=== PATIENT | male | born 1990 | race Caucasian/White ===

== ENCOUNTER 2021-07-10 17:14 | Emergency (ER) | payer BC ==
[2021-07-10 17:47] LABS: Absolute Neutrophil Ct (ANC) 5.13 (1.4-6.9); BASOPHIL % 0.5 % (0.0-0.4); Basophil (Absolute #) 0.04 (0-0.4); Eosinophil % 0.5 % (0.00-5.0); Eosinophil (Absolute #) 0.04 (0-0.5); Hemoglobin 15.7 gm/dl (12.5-18.0); Lymphocyte (Absolute #) 2.38 (1.0-4.6); Lymphocytes % 28.1 % (24.0-44.0); Mean Cell Volume 93.4 fl (78-100); Mean Corpuscular Hemoglobin 31.2 pg (26-32); Mean Corpuscular Hgb Concent. 33.4 g/dl (32-36); Monocyte (Absolute #) 0.89 (0.0-1.3); Monocytes % 10.5 % (0.0-12.0); Neutrophil % 60.4 % (36.0-66.0); Platelet Count 194 K/mm3 (150-450); Red Blood Count 5.03 M/mm3 (4.1-5.6); Red Cell Distribution Width 13.1 % (11.5-14.0); White Blood Count 8.5 K/mm3 (4.0-10.5)
[2021-07-10 18:24] LABS: ALBUMIN 4.3 g/dL (3.5-5.0); ALKALINE PHOSPHATASE 40 U/L (38-126); ANION GAP 16.1 MEQ/L (5-15); BLOOD UREA NITROGEN 23 mg/dL (9-20); CHLORIDE 104 mmol/L (98-107); Calcium 9.6 mg/dL (8.4-10.2); Carbon Dioxide 26 mmol/L (22-30); Creatinine 1 1.02 mg/dL (0.66-1.25); EST GLOMERULAR FILTRATION RATE > 60.0 ML/MIN; Glucose 102 mg/dL (74-106); NT PRO BNP 58.5 pg/mL (0-450); Potassium 4.2 mmol/L (3.5-5.1); SGOT/AST 25 U/L (17-59); SGPT/ALT 22 U/L (0-50); SODIUM 142 mmol/L (137-145); Total Protein 6.7 g/dL (6.3-8.2)
--- NOTE | 2021-07-10 19:12 | ERPHSYRPT ---
- History of Present Illness Time Seen by Provider: 07/10/21 17:18 Patient Subjective Stated Complaint: Chest pain Triage Nursing Assessment: Patient ambulated back to ED and transferred self to bed. Patient A+O X3. Patient's skin pink, warm and dry. Patient complains of chest pain a few days ago that felt like burst of bubbles on right side of chest. Patient also states he woke up and felt "Foggy" this am. Patient currently denies pain. Patient denies N/V or diarhea. Physician History: 31 years old fairly healthy male presented in the ER with symptoms of right-si ded chest pain few days ago with feeling of some bubble popping up without any difficulty breathing. Does not have any chest pain now. Patient reports he was not feeling well overall today. He feels a little slow, malaise without any fever or chills. Denies any sick contact. Did receive Covid vaccine. Timing/Duration: day(s) (2), intermittent, sudden Activities at Onset: sleep Quality: dullness Location: other (Right side) Chest Pain Radiation: no radiation Severity of Pain-Max: mild Severity of Pain-Current: none Modifying Factors: Improves With: nothing Associated Symptoms: denies symptoms Prior Chest Pain/Cardiac Workup: no prior chest pain, no prior cardiac workup Nitro Today/Relief: no nitro taken today Aspirin Treatment Today: no aspirin today Allergies/Adverse Reactions: amoxicillin Allergy (Verified 07/10/21 17:20) Home Medications: No Reportable Medications [No Reported Medications] 07/10/21 [History] Hx Influenza Vaccination/Date Given: No Hx Pneumococcal Vaccination/Date Given: No Immunizations Up to Date: Yes Travel Risk - International Travel Have you traveled outside of the country in past 3 weeks: No - Coronavirus Screening Are you exhibiting any of the following symptoms?: No Close contact with a COVID-19 positive Pt in past 14-21 Days: No - Vaccine Status Have you recieved a Covid-19 vaccination: Yes [employer]: [place] - Review of Systems Constitutional: No Symptoms Eyes: No Symptoms Ears, Nose, & Throat: No Symptoms Respiratory: No Symptoms Cardiac: Chest Pain Abdominal/Gastrointestinal: No Symptoms Genitourinary Symptoms: No Symptoms Musculoskeletal: Myalgias Skin: No Symptoms Neurological: Other Psychological: No Symptoms Endocrine: No Symptoms Hematologic/Lymphatic: No Symptoms Immunological/Allergic: No Symptoms - Past Medical History Pertinent Past Medical History: No Neurological History: No Pertinent History ENT History: No Pertinent History Cardiac History: No Pertinent History Respiratory History: No Pertinent History Endocrine Medical History: No Pertinent History Musculoskeletal History: No Pertinent History GI Medical History: No Pertinent History History: No Pertinent History Psycho-Social History: No Pertinent History Male Reproductive Disorders: No Pertinent History - Past Surgical History Past Surgical History: No Neuro Surgical History: No Pertinent History Cardiac: No Pertinent History Respiratory: No Pertinent History Gastrointestinal: No Pertinent History Genitourinary: No Pertinent History Musculoskeletal: No Pertinent History Male Surgical History: No Pertinent History - Social History Smoking Status: Never smoker Exposure to second hand smoke: No Drug Use: none Patient Lives Alone: Yes - Nursing Vital Signs Nursing Vital Signs: Initial Vital Signs Temperature 98.6 F 07/10/21 17:22 Pulse Rate 67 07/10/21 17:22 Respiratory Rate 18 07/10/21 17:22 Blood Pressure 134/82 07/10/21 17:22 O2 Sat by Pulse Oximetry 97 07/10/21 17:22 Pain Scale Pain Intensity 0 - Physical Exam General Appearance: no apparent distress, alert, anxiety Eye Exam: PERRL/EOMI, eyes nml inspection Ears, Nose, Throat Exam: normal ENT inspection, TMs normal, pharynx normal Neck Exam: normal inspection, non-tender, supple, full range of motion Respiratory Exam: normal breath sounds, lungs clear Cardiovascular Exam: regular rate/rhythm, normal heart sounds Gastrointestinal/Abdomen Exam: soft, normal bowel sounds, No tenderness Back Exam: normal inspection, normal range of motion Extremity Exam: normal inspection, normal range of motion, pelvis stable Neurologic Exam: alert, oriented x 3, cooperative, 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 tested, nml cerebellar function, nml station & gait, sensation nml, No normal mood/affect (Anxious) Skin Exam: normal color SpO2 Interpretation: normal SpO2: 98 O2 Delivery: Room Air - Course EKG Interpreted by Me: RATE (59), Sinus Alex, NORMAL AXIS, NORMAL INTERVALS, NORMAL QRS Ordered Tests: Active Orders 24 hr Category Date Time Status CHEST 1 VIEW (PORTABLE) Stat Exams 07/10/21 17:25 Taken CBC W DIFF Stat Lab 07/10/21 17:43 Completed CMP Stat Lab 07/10/21 17:43 Completed D-DIMER QUANTITATIVE Stat Lab 07/10/21 17:43 Completed NT PRO BNP Stat Lab 07/10/21 17:43 Completed TROPONIN Q3H Lab 07/10/21 17:43 Completed TROPONIN Q3H Lab 07/10/21 20:30 Ordered TROPONIN Q3H Lab 07/10/21 23:30 Ordered TROPONIN Q3H Lab 07/11/21 02:30 Ordered TROPONIN Q3H Lab 07/11/21 05:30 Ordered Lab/Rad Data: Laboratory Result Diagrams 07/10/21 17:43 07/10/21 17:43 Laboratory Results 07/10/21 07/10/21 07/10/21 Range/Units 17:43 17:43 17:43 WBC (4.0-10.5) K/mm3 RBC (4.1-5.6) M/mm3 Hgb (12.5-18.0) gm/dl Hct (42-50) % MCV (78-100) fl MCH (26-32) pg MCHC (32-36) g/dl RDW (11.5-14.0) % Plt Count (150-450) K/mm3 MPV (7.5-11.0) fl Gran % (36.0-66.0) % Eos # (Auto) (0-0.5) Absolute Lymphs (auto) (1.0-4.6) Absolute Monos (auto) (0.0-1.3) Lymphocytes % (24.0-44.0) % Monocytes % (0.0-12.0) % Eosinophils % (0.00-5.0) % Basophils % (0.0-0.4) % Absolute Granulocytes (1.4-6.9) Basophils # (0-0.4) D-Dimer 269 (215-500) ng/mL Sodium 142 (137-145) mmol/L Potassium 4.2 (3.5-5.1) mmol/L Chloride 104 (98-107) mmol/L Carbon Dioxide 26 (22-30) mmol/L Anion Gap 16.1 H (5-15) MEQ/L BUN 23 H (9-20) mg/dL Creatinine 1.02 (0.66-1.25) mg/dL Estimated GFR > 60.0 ML/MIN Glucose 102 (74-106) mg/dL Calcium 9.6 (8.4-10.2) mg/dL Total Bilirubin 0.40 (0.2-1.3) mg/dL AST 25 (17-59) U/L ALT 22 (0-50) U/L Alkaline Phosphatase 40 (38-126) U/L Troponin I < 0.012 (0.000-0.034) ng/mL NT-Pro-B Natriuret Pep 58.5 (0-450) pg/mL Serum Total Protein 6.7 (6.3-8.2) g/dL Albumin 4.3 (3.5-5.0) g/dL 07/10/21 Range/Units 17:43 WBC 8.5 (4.0-10.5) K/mm3 RBC 5.03 (4.1-5.6) M/mm3 Hgb 15.7 (12.5-18.0) gm/dl Hct 47.0 (42-50) % MCV 93.4 (78-100) fl MCH 31.2 (26-32) pg MCHC 33.4 (32-36) g/dl RDW 13.1 (11.5-14.0) % Plt Count 194 (150-450) K/mm3 MPV 11.0 (7.5-11.0) fl Gran % 60.4 (36.0-66.0) % Eos # (Auto) 0.04 (0-0.5) Absolute Lymphs (auto) 2.38 (1.0-4.6) Absolute Monos (auto) 0.89 (0.0-1.3) Lymphocytes % 28.1 (24.0-44.0) % Monocytes % 10.5 (0.0-12.0) % Eosinophils % 0.5 (0.00-5.0) % Basophils % 0.5 (0.0-0.4) % Absolute Granulocytes 5.13 (1.4-6.9) Basophils # 0.04 (0-0.4) D-Dimer (215-500) ng/mL Sodium (137-145) mmol/L Potassium (3.5-5.1) mmol/L Chloride (98-107) mmol/L Carbon Dioxide (22-30) mmol/L Anion Gap (5-15) MEQ/L BUN (9-20) mg/dL Creatinine (0.66-1.25) mg/dL Estimated GFR ML/MIN Glucose (74-106) mg/dL Calcium (8.4-10.2) mg/dL Total Bilirubin (0.2-1.3) mg/dL AST (17-59) U/L ALT (0-50) U/L Alkaline Phosphatase (38-126) U/L Troponin I (0.000-0.034) ng/mL NT-Pro-B Natriuret Pep (0-450) pg/mL Serum Total Protein (6.3-8.2) g/dL Albumin (3.5-5.0) g/dL - Progress Progress: re-examined Air Movement: good Progress Note: 07/10/21 19:10 Negative work-up for chest pain including troponin and D-dimer. Chest x-ray did not show any acute finding reviewed by me, official report is pending. Patient is very anxious, consult. Recommended Tylenol to take as needed. Outpatient follow-up. Blood Culture(s) Obtained: No Antibiotics given: No Counseled pt/family regarding: lab results, diagnosis, need for follow-up, rad results - Departure Departure Disposition: Home Clinical Impression: Right-sided chest pain Condition: Stable Critical Care Time: No Referrals: SANDHYA MOORE MD [ACTIVE STAFF] - (Call tomorrow for reevaluation and establish care) Instructions: Chest Pain (DC) Additional Instructions: Take Tylenol as needed. Follow-up with primary care for reevaluation. Return to ER for worsening chest pain or if develop shortness of breath/fever chills etc.
[2021-07-10 19:53] VITALS: BP 120/78; PULSE 57; O2SAT 97
--- NOTE | 2021-07-11 08:52 | XRAY ---
Indication: Chest pain. Comparison: None Portable chest demonstrates normal heart, lungs, and bony thorax with incidental 1 cm right upper lobe calcified granuloma.
== END 2021-07-10 19:59 | disposition home or self-care (01) ==
LOC: ED 17:14
DX: R07.89 Other chest pain (principal); M79.18 Myalgia, other site
CPT/HCPCS: 36415; 71045; 80053; 83880; 84484; 85025; 85379; 93005; 99284

== ENCOUNTER 2022-04-24 12:58 | Emergency (ER) | payer BC | END 2022-04-24 13:11 | disposition left against medical advice (07) | LOC: ED 12:58 | DX: Z53.21 Procedure and treatment not carried out due to patient leaving prior to being seen by health care provider (principal) ==

== ENCOUNTER 2025-09-07 09:06 | Emergency (ER) | payer BC ==
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
[2025-09-07 09:28] VITALS: RESP 16; TEMP 98.1; O2SAT 99
[2025-09-07 09:33] VITALS: BP 114/81; PULSE 55
== END 2025-09-07 09:36 | disposition home or self-care (01) ==
LOC: ED 09:06
DX: S16.1XXA Strain of muscle, fascia and tendon at neck level, initial encounter (principal); X58.XXXA Exposure to other specified factors, initial encounter; Z79.899 Other long term (current) drug therapy